=== PATIENT | female | born 1955 | race Caucasian/White ===

== ENCOUNTER 2019-08-11 14:00 | Emergency (ER) | payer MEDICAID ==
--- NOTE | 2019-08-11 14:55 | ER Document Report ---
ED Medical Screen (RME) - General Stated Complaint: LOWER BACK PAIN Time Seen by Provider: 08/11/19 14:50 Primary Care Provider: JEWELL HALL DO [Primary Care Provider] - Follow up as needed Mode of Arrival: Medic Information source: Patient Notes: 89-jekz-[age]-year-old female with history of kidney disease presents emergency department with complaints of left-sided flank pain since . Reports she just woke up with it. She also reports decreased urinary output. She denies fever vomiting diarrhea. She reports it hurts to walk. Denies lifting things heavy denies bowel incontinence reports she is always had problems with urinary incontinence. Left flank very tender to palpate I have greeted and performed a rapid initial assessment of this patient. A comprehensive ED assessment and evaluation of the patient, analysis of test results and completion of the medical decision making process will be conducted by additional ED providers. Physical Exam - Vital signs Vitals: Temp Pulse Resp BP Pulse Ox 98.1 F 83 18 130/69 H 93 08/11/19 14:23 08/11/19 14:23 08/11/19 14:23 08/11/19 14:23 08/11/19 14:23 Course - Vital Signs Vital signs: Temp Pulse Resp BP Pulse Ox 98.1 F 83 18 130/69 H 93 08/11/19 14:23 08/11/19 14:23 08/11/19 14:23 08/11/19 14:23 08/11/19 14:23 Doctor's Discharge - Discharge Referrals: JEWELL HALL DO [Primary Care Provider] - Follow up as needed
[2019-08-11 15:35] LABS: ABSOLUTE BASOPHILS # (AUTO) 0.1 10^3/uL (0.0-0.2); ABSOLUTE EOSINOPHILS # (AUTO) 0.2 10^3/uL (0.0-0.6); ABSOLUTE LYMPHOCYTES (AUTO) 2.3 10^3/uL (0.5-4.7); ABSOLUTE MONOCYTES (AUTO) 1.1 10^3/uL (0.1-1.4); ABSOLUTE NEUT (AUTO) 7.4 10^3/uL (1.7-8.2); EOSINOPHILS % (AUTO) 1.7 % (0-6); HEMATOCRIT 39.7 % (36.0-47.0); HEMOGLOBIN 13.2 g/dL (12.0-15.5); LYMPHOCYTES % (AUTO) 20.5 % (13-45); MEAN CORPUSCULAR HEMOGLOBIN 29.7 pg (27.0-33.4); MEAN CORPUSCULAR HGB CONC 33.3 g/dL (32.0-36.0); MEAN CORPUSCULAR VOLUME 89 fl (80-97); MONOCYTES % (AUTO) 9.9 % (3-13); PLATELET COUNT 238 10^3/uL (150-450); RED BLOOD COUNT 4.45 10^6/uL (3.72-5.28); RED CELL DISTRIBUTION WIDTH 14.6 % (11.5-14.0); SEGMENTED NEUTROPHILS % (AUTO) 66.9 % (42-78); TOTAL CELLS COUNTED % (AUTO) 100 %; WHITE BLOOD COUNT 11.1 10^3/uL (4.0-10.5)
[2019-08-11 15:37] LABS: APPEARANCE,URINE CLEAR; BILIRUBIN,URINE NEGATIVE (NEGATIVE); COLOR,URINE YELLOW; GLUCOSE, URINE >=500 mg/dL (NEGATIVE); KETONES,URINE NEGATIVE (NEGATIVE); LEUKOCYTE ESTERASE,URINE NEGATIVE (NEGATIVE); NITRITE,URINE NEGATIVE (NEGATIVE); PROTEIN,URINE NEGATIVE (NEGATIVE); URINE SPECIFIC GRAVITY 1.013; UROBILINOGEN,URINE NEGATIVE mg/dL (<2.0)
--- NOTE | 2019-08-11 15:54 | RADIOLOGY REPORT (SQ) ---
EXAM DESCRIPTION: CT ABD/PELVIS NO ORAL OR IV COMPLETED DATE/TIME: 08/11/2019 3:32 pm REASON FOR STUDY: flank pain COMPARISON: None. TECHNIQUE: CT scan of the abdomen and pelvis performed without intravenous or oral contrast. Images reviewed with lung, soft tissue, and bone windows. Reconstructed coronal and sagittal MPR images revi ewed. All images stored on PACS. All CT scanners at this facility use dose modulation, iterative reconstruction, and/or weight based d osing when appropriate to reduce radiation dose to as low as reasonably achievable (ALARA). - [facility]: Dose Right [facility]: CareDose [facility]: Dose Right [facility]: Teradose 4D [facility]: [employer] RADIATION DOSE: CT Rad equipment meets quality standard of care and radiation dose reduction techniq ues were employed. CTDIvol: 17.6 mGy. DLP: 957 mGy-cm.mGy. LIMITATIONS: None. FINDINGS: LOWER CHEST: Small areas of left basilar subpleural scarring -atelectasis. No pleural eff usion. NON-CONTRASTED LIVER, SPLEEN, ADRENALS: Evaluation limited by lack of IV contrast. No identified sign ificant masses. PANCREAS: No masses. No peripancreatic inflammatory changes. GALLBLADDER: Surgically absent. RIGHT KIDNEY AND URETER: No cysts identified. No solid masses. No calcified stones. No hydronephrosis or hydroureter. LEFT KIDNEY AND URETER: No cysts identified. No solid masses. No calcified stones. No hydronephrosis or hydroureter. AORTA AND RETROPERITONEUM: No aneurysm. No retroperitoneal masses or adenopathy. BOWEL AND PERITONEAL CAVITY: No obvious masses or inflammatory changes. No free fluid. APPENDIX: Normal. PELVIS, BLADDER, AND ABDOMINAL WALL: No free fluid. Unremarkable bladder. BONES: No acute findings. OTHER: No other significant finding. IMPRESSION: NO ACUTE FINDINGS. TECHNICAL DOCUMENTATION: JOB ID: [id number] Quality ID # [id number]: Final reports with documentation of one or more dose reduction techniques (e.g., Au tomated exposure control, adjustment of the mA and/or kV according to patient size, use of iterative reconstruction technique) 2010 [employer]- All Rights Reserved Reading location - IP/workstation name: [employer]
[2019-08-11 15:59] LABS: ALBUMIN 3.6 g/dL (3.5-5.0); ALKALINE PHOSPHATASE 123 U/L (38-126); ANION GAP 13 (5-19); ASPARTATE AMINO TRANSFERASE 25 U/L (14-36); BILIRUBIN,DIRECT 0.2 mg/dL (0.0-0.4); BILIRUBIN,TOTAL 0.4 mg/dL (0.2-1.3); BLOOD UREA NITROGEN 22 mg/dL (7-20); CALCIUM 9.3 mg/dL (8.4-10.2); CARBON DIOXIDE 25 mmol/L (22-30); CHLORIDE 96 mmol/L (98-107); POTASSIUM 4.8 mmol/L (3.6-5.0); TOTAL PROTEIN 6.8 g/dL (6.3-8.2)
[2019-08-11 16:11] LABS: GLUCOSE 414 mg/dL (75-110)
[2019-08-11] MEDS ORDERED: LIDOCAINE 5% (700 MG) TRANSDERMAL ADH..PATCH TP ONE (16:30)
[2019-08-11] MEDS ORDERED: KETOROLAC TROMETHAMINE 60 MG/2 ML SDV IM ONE (16:30)
[2019-08-11] MEDS ORDERED: CYCLOBENZAPRINE HCL 10 MG TABLET PO ONE (16:30)
--- NOTE | 2019-08-11 18:18 | ER Document Report ---
ED General - General Chief Complaint: Back Pain Stated Complaint: LOWER BACK PAIN Time Seen by Provider: 08/11/19 14:50 Primary Care Provider: JEWELL HALL DO [NO LOCAL MD] - Follow up as needed Mode of Arrival: Ambulatory Information source: Patient Notes: 31-hiwi-kic-year-old female with history of kidney disease presents emergency department with complaints of left-sided flank pain since . Reports she just woke up with it. She also reports decreased urinary output. She denies fever vomiting diarrhea. She reports it hurts to walk. Denies lifting things heavy denies bowel incontinence reports she is always had problems with urinary incontinence. Left flank very tender to palpate - Related Data Allergies/Adverse Reactions: haloperidol [From Haldol] Allergy (Verified 08/11/19 14:54) quetiapine [From Seroquel] Allergy (Verified 08/11/19 14:54) Past Medical History - General Information source: Patient - Social History Smoking Status: Current Every Day Smoker Chew tobacco use (# tins/day): No Frequency of alcohol use: None Drug Abuse: None Family History: Reviewed & Not Pertinent Patient has suicidal ideation: No Patient has homicidal ideation: No Endocrine Medical History: Reports: Hx Diabetes Mellitus Type 2 Surgical Hx: Negative - Immunizations Immunizations up to date: Yes Review of Systems - Review of Systems Constitutional: No symptoms reported EENT: No symptoms reported Cardiovascular: No symptoms reported Respiratory: No symptoms reported Gastrointestinal: Abdominal pain Genitourinary: No symptoms reported Female Genitourinary: No symptoms reported Musculoskeletal: See HPI Skin: No symptoms reported Hematologic/Lymphatic: No symptoms reported Neurological/Psychological: No symptoms reported Physical Exam - Vital signs Vitals: Temp Pulse Resp BP Pulse Ox 98.1 F 83 18 130/69 H 93 08/11/19 14:23 08/11/19 14:23 08/11/19 14:23 08/11/19 14:23 08/11/19 14:23 - Notes Notes: PHYSICAL EXAMINATION: GENERAL: Well-appearing, well-nourished and in no acute distress. HEAD: Atraumatic, normocephalic. EYES: Pupils equal round and reactive to light, extraocular movements intact, co njunctiva are normal. ENT: Nares patent, oropharynx clear without exudates. Moist mucous membranes. NECK: Normal range of motion, supple without lymphadenopathy LUNGS: Breath sounds clear to auscultation bilaterally and equal. No wheezes rales or rhonchi. HEART: Regular rate and rhythm without murmurs ABDOMEN: Soft, nontender, nondistended abdomen. No guarding, no rebound. No masses appreciated. Female : deferred Musculoskeletal: Tenderness to palpation to the left lumbar paraspinous area, tenderness over the left flank area and left anterior thigh area. No vertebral tenderness, step-off or deformity. NEUROLOGICAL: Cranial nerves grossly intact. Normal speech, normal gait. N ormal sensory, motor exams PSYCH: Normal mood, normal affect. SKIN: Warm, Dry, normal turgor, no rashes or lesions noted. Course - Re-evaluation Re-evalutation: 08/11/19 18:15 Patient reports her pain has improved after administration of medications here in the emergency department. We will discharge her home with prescription for Toradol and Flexeril. She will have close follow-up with her primary care provider. Copies of her labs and CT were given to her with discharge packet for review by her primary care physician. We also discussed ED return precautions, patient verbalized understanding and agreement with same. - Vital Signs Vital signs: Temp Pulse Resp BP Pulse Ox 97.8 F 68 16 145/75 H 96 08/11/19 18:38 08/11/19 18:38 08/11/19 18:38 08/11/19 18:38 08/11/19 18:38 - Laboratory Result Diagrams: 08/11/19 15:14 08/11/19 15:14 Laboratory results interpreted by me: 08/11/19 08/11/19 08/11/19 15:14 15:14 15:14 WBC 11.1 H RDW 14.6 H Sodium 133.7 L Chloride 96 L BUN 22 H Est GFR (MDRD) Non-Af 50 L Glucose 414 H* Urine Glucose (UA) >=500 H Discharge - Discharge Clinical Impression: Back pain Qualifiers: Back pain location: low back pain Chronicity: acute Back pain laterality: left Sciatica presence: with sciatica Sciatica laterality: sciatica of left side Qualified Code(s): M54.42 - Lumbago with sciatica, left side Condition: Stable Disposition: HOME, SELF-CARE Additional Instructions: You have been seen in the Emergency Department (ED) today for back pain. Your workup and exam have not shown any acute abnormalities and you are likely suffering from muscle strain or possible problems with your discs, but there is no treatment that will fix your symptoms at this time. Please take the medication that has been prescribed as directed. You should also purchase a local lidocaine cream such as "aspercreme with lidocaine" and use per bottle instructions to the affected area. Apply heat to the area as often as you are a ble. Continue to keep active and avoid prolonged periods of bed rest. Please follow up with your doctor as soon as possible regarding today's ED visit and your back pain. Return to the ED for worsening back pain, fever, weakness or numbness of either leg, or if you develop either (1) an inability to urinate or have bowel movements, or (2) loss of your ability to control your bathroom functions (if you start having "accidents"), or if you develop other new symptoms that concern you.call your primary care provider to schedule a follow- up for the next 3 to 5 days. Prescriptions: Ketorolac Tromethamine [Toradol 10 mg Tablet] 10 mg PO Q6HP PRN #20 tablet PRN Reason: Cyclobenzaprine HCl [Flexeril 10 mg Tablet] 10 mg PO TIDP PRN #20 tab PRN Reason: Referrals: JEWELL HALL DO [NO LOCAL MD] - Follow up as needed
[2019-08-11 18:39] VITALS: BP 145/75
== END 2019-08-11 18:40 | disposition home or self-care (01) ==
LOC: ER 14:00
DX: M54.42 Lumbago with sciatica, left side (principal); R10.9 Unspecified abdominal pain; F17.200 Nicotine dependence, unspecified, uncomplicated; E11.9 Type 2 diabetes mellitus without complications
CPT/HCPCS: 99284; 96372; 36415; 85025; 80053; 81001; 74176; J3490 ×2; J1885

== ENCOUNTER 2019-08-27 15:12 | Emergency (ER) | payer MEDICAID ==
--- NOTE | 2019-08-27 15:30 | ER Document Report ---
ED Medical Screen (RME) - General Chief Complaint: Bloody Stools Stated Complaint: BLOODY STOOLS,ABDOMINAL PAIN Time Seen by Provider: 08/27/19 15:28 Primary Care Provider: HENOK PEARSON PA-C [Primary Care Provider] - Follow up as needed - [facility] Notes: 08/27/19 15:30 Patient is a 63-year-old female with history of type 2 diabetes who presents complaining of having black stools for the past 3 days and was seen by her family doctor yesterday and was told that it was blood. She does have some mid to lower abdominal pains as well. She has been able to eat and drink without difficulty. She is urinating normally. No fever, chest pain, shortness of breath. She has not had GI issues or bleeding in the past. I have treated and performed a rapid initial assessment of this patient. A comprehensive ED assessment and evaluation of the patient, analysis of test results and completion of medical decision making process will be conducted by additional ED providers. PHYSICAL EXAMINATION: GENERAL: Well-appearing, well-nourished and in no acute distress. A&Ox4. Answers questions appropriately. Abdomen: Limited exam in triage, mild tenderness to the mid/lower abdomen. - Related Data Allergies/Adverse Reactions: haloperidol [From Haldol] Allergy (Verified 08/11/19 14:54) moxifloxacin [From Avelox] Allergy (Verified 08/27/19 15:28) quetiapine [From Seroquel] Allergy (Verified 08/11/19 14:54) Past Medical History Endocrine Medical History: Reports: Hx Diabetes Mellitus Type 2 - Immunizations Immunizations up to date: Yes Physical Exam - Vital signs Vitals: Temp Pulse Resp BP Pulse Ox 98.1 F 66 18 149/70 H 95 08/27/19 15:21 08/27/19 15:21 08/27/19 15:21 08/27/19 15:21 08/27/19 15:21 Course - Vital Signs Vital signs: Temp Pulse Resp BP Pulse Ox 98.1 F 66 18 149/70 H 95 08/27/19 15:21 08/27/19 15:21 08/27/19 15:21 08/27/19 15:21 08/27/19 15:21 Doctor's Discharge - Discharge Referrals: LILI,HENOK, PA-C [Primary Care Provider] - Follow up as needed
[2019-08-27 16:35] LABS: ABSOLUTE EOSINOPHILS # (AUTO) 0.1 10^3/uL (0.0-0.6); ABSOLUTE LYMPHOCYTES (AUTO) 2.4 10^3/uL (0.5-4.7); ABSOLUTE MONOCYTES (AUTO) 0.8 10^3/uL (0.1-1.4); ABSOLUTE NEUT (AUTO) 2.1 10^3/uL (1.7-8.2); BASOPHILS % (AUTO) 0.3 % (0-2); EOSINOPHILS % (AUTO) 1.4 % (0-6); HEMOGLOBIN 13.3 g/dL (12.0-15.5); LYMPHOCYTES % (AUTO) 44.7 % (13-45); MEAN CORPUSCULAR HEMOGLOBIN 29.5 pg (27.0-33.4); MEAN CORPUSCULAR HGB CONC 33.3 g/dL (32.0-36.0); MEAN CORPUSCULAR VOLUME 89 fl (80-97); MONOCYTES % (AUTO) 14.8 % (3-13); PLATELET COUNT 173 10^3/uL (150-450); RED BLOOD COUNT 4.51 10^6/uL (3.72-5.28); RED CELL DISTRIBUTION WIDTH 14.9 % (11.5-14.0); SEGMENTED NEUTROPHILS % (AUTO) 38.8 % (42-78); TOTAL CELLS COUNTED % (AUTO) 100 %; WHITE BLOOD COUNT 5.4 10^3/uL (4.0-10.5)
[2019-08-27 16:42] LABS: APPEARANCE,URINE CLEAR; BILIRUBIN,URINE NEGATIVE (NEGATIVE); COLOR,URINE STRAW; GLUCOSE, URINE NEGATIVE (NEGATIVE); KETONES,URINE NEGATIVE (NEGATIVE); PROTEIN,URINE NEGATIVE (NEGATIVE); URINE SPECIFIC GRAVITY 1.002; UROBILINOGEN,URINE NEGATIVE mg/dL (<2.0)
[2019-08-27 16:58] LABS: ALBUMIN 3.7 g/dL (3.5-5.0); ALKALINE PHOSPHATASE 110 U/L (38-126); ANION GAP 9 (5-19); ASPARTATE AMINO TRANSFERASE 68 U/L (14-36); BILIRUBIN,DIRECT 0.3 mg/dL (0.0-0.4); BILIRUBIN,TOTAL 0.4 mg/dL (0.2-1.3); BLOOD UREA NITROGEN 10 mg/dL (7-20); CALCIUM 9.1 mg/dL (8.4-10.2); CARBON DIOXIDE 29 mmol/L (22-30); CHLORIDE 102 mmol/L (98-107); GLUCOSE 91 mg/dL (75-110); POTASSIUM 4.2 mmol/L (3.6-5.0); TOTAL PROTEIN 7.1 g/dL (6.3-8.2)
[2019-08-27] MEDS ORDERED: NORMAL SALINE 1000 ML 1,000 ML IV ONE (18:46)
[2019-08-27] MEDS ORDERED: PANTOPRAZOLE SODIUM 40 MG VIAL IV ONE (18:47)
[2019-08-27] MEDS ORDERED: FAMOTIDINE INJ/PF 20 MG/2 ML SDV IV ONE (18:48)
[2019-08-27] MEDS ORDERED: ONDANSETRON HCL INJ/PF 4 MG/2 ML SDV IV ONE (18:49)
--- NOTE | 2019-08-27 18:58 | ER Document Report ---
ED General - General Chief Complaint: Bloody Stools Stated Complaint: BLOODY STOOLS,ABDOMINAL PAIN Time Seen by Provider: 08/27/19 15:28 Primary Care Provider: HENOK PEARSON PA-C [Primary Care Provider] - Follow up as needed Mode of Arrival: Ambulatory TRAVEL OUTSIDE OF THE [place] IN LAST 30 DAYS: No - HPI Onset: Other - 3 days prior Onset/Duration: Sudden Quality of pain: Dull, Other - pt reports 3 months of grumbley stomach Severity: Moderate Pain Level: 3 - Related Data Allergies/Adverse Reactions: haloperidol [From Haldol] Allergy (Verified 08/11/19 14:54) moxifloxacin [From Avelox] Allergy (Verified 08/27/19 15:28) quetiapine [From Seroquel] Allergy (Verified 08/11/19 14:54) Home Medications: aspirin, humolog, atorvastatin, bupropion, duloxetine, gabapentin, lisinopril, magnesium, methocarbamol, risperdone, trazedone, albuterol, chantix doxepin, augmentin, tesselon perles. Past Medical History - General Information source: Patient, Relative - Social History Smoking Status: Current Every Day Smoker Cigarette use (# per day): Yes Chew tobacco use (# tins/day): No Smoking Education Provided: Yes Frequency of alcohol use: None Drug Abuse: None Lives with: Family Family History: CVA. denies: Reviewed & Not Pertinent, COPD Patient has suicidal ideation: No Patient has homicidal ideation: No - Past Medical History Cardiac Medical History: Reports: None Pulmonary Medical History: Reports: None EENT Medical History: Reports: None Neurological Medical History: Reports: None Endocrine Medical History: Reports: Hx Diabetes Mellitus Type 2 Renal/ Medical History: Reports: None GI Medical History: Reports: Hx Gastritis - x 3 months not evaluated by PMD..did see Keily yesterday - Immunizations Immunizations up to date: Yes Review of Systems - Review of Systems Constitutional: Weakness - x 3 days stumbling at home Cardiovascular: Dizziness, Lightheaded. denies: No symptoms reported Respiratory: No symptoms reported Gastrointestinal: Abdomen distended, Abdominal pain, Nausea, Blood streaked bowels, Black stools Female Genitourinary: No symptoms reported Musculoskeletal: No symptoms reported Hematologic/Lymphatic: No symptoms reported Neurological/Psychological: No symptoms reported Physical Exam - Vital signs Vitals: Temp Pulse Resp BP Pulse Ox 98.1 F 66 18 149/70 H 95 08/27/19 15:21 08/27/19 15:21 08/27/19 15:21 08/27/19 15:21 08/27/19 15:21 Interpretation: Normal - General General appearance: Anxious In distress: None - HEENT Head: Normocephalic Eyes: Pale conjunctiva. No: Normal Extraocular movements intact: Yes Eyelashes: Normal Pupils: PERRL Ears: Normal Sinus: Normal Nasal: Normal Mouth/Lips: Other - dry tongue Mucous membranes: Dry - Abdominal Distension: Distended Bowel sounds: Hyperactive Organomegaly: No organomegaly Course - Re-evaluation Re-evalutation: 08/27/19 20:28 Spoke with he advises observation admission but after speaking with Dr. Jay Collado he declined admission. I again spoke with Dr Hill as he was see her in the office tomorrow for outpatient GI ; n.p.o. after midnight - Vital Signs Vital signs: Temp Pulse Resp BP Pulse Ox 98.1 F 66 18 149/70 H 95 08/27/19 15:21 08/27/19 15:21 08/27/19 15:21 08/27/19 15:21 08/27/19 15:21 - Laboratory Result Diagrams: 08/27/19 16:18 08/27/19 16:18 Laboratory results interpreted by me: 08/27/19 08/27/19 16:18 16:18 RDW 14.9 H Sharkey % (Auto) 14.8 H Seg Neutrophils % 38.8 L Est GFR (MDRD) Non-Af 59 L AST 68 H - Diagnostic Test Radiology reviewed: Reports reviewed Discharge - Discharge Clinical Impression: GI bleed due to NSAIDs Condition: Fair Disposition: HOME, SELF-CARE Additional Instructions: Follow-up with Dr. Hill gastroenterology in his office tomorrow and do not eat or drink anything past midnight; return to ER as needed take medicines as directed Prescriptions: Sucralfate [Carafate 1 gm Tablet] 1 gm PO TID #60 tablet Referrals: HENOK PEARSON PA-C [Primary Care Provider] - Follow up as needed
--- NOTE | 2019-08-27 19:45 | RADIOLOGY REPORT (SQ) ---
EXAM DESCRIPTION: CTA ABDOMEN/PELVIS W WO COMPLETED DATE/TIME: 08/27/2019 7:30 pm REASON FOR STUDY: gi bleed COMPARISON: 08/11/2019 TECHNIQUE: CT scan of the abdomen and pelvis performed with and without intravenous contrast. Images reviewed with lung, soft tissue, and bone windows. Reconstructed coronal and sagittal MPR images rev iewed. Delayed images for evaluation of possible gastrointestinal hemorrhage. All images stored on PA CS. All CT scanners at this facility use dose modulation, iterative reconstruction, and/or weight based d osing when appropriate to reduce radiation dose to as low as reasonably achievable (ALARA). [facility]: Dose Right [facility]: CareDose [facility]: Dose Right [facility]: Teradose 4D [facility]: [employer] CONTRAST TYPE AND DOSE: contrast/concentration: Isovue 350.00 mg/ml; Total Contrast Delivered: 99.0 ml; Total Saline Delivered: 62.0 ml RENAL FUNCTION: GFR > 60. RADIATION DOSE: CT Rad equipment meets quality standard of care and radiation dose reduction techniq ues were employed. CTDIvol: 19.4 - 45.4 mGy. DLP: 4170 mGy-cm.. LIMITATIONS: None. FINDINGS: NON-CONTRASTED IMAGING: No significant renal or bladder calcifications. No other significa nt organ calcifications. POST-CONTRASTED IMAGING: LOWER CHEST: No significant findings. No nodules or infiltrates. LIVER: Normal size. No masses. No dilated ducts. SPLEEN: Normal size. No focal lesions. PANCREAS: No masses. No significant calcifications. No adjacent inflammation or peripancreatic fluid collections. Pancreatic duct not dilated. GALLBLADDER: Surgically absent. ADRENAL GLANDS: No significant masses or asymmetry. RIGHT KIDNEY AND URETER: No solid masses. No significant calcifications. No hydronephrosis or hyd roureter. LEFT KIDNEY AND URETER: No solid masses. No significant calcifications. No hydronephrosis or hydr oureter. AORTA AND VESSELS: No aneurysm. No dissection. Renal arteries, SMA, celiac without stenosis. RETROPERITONEUM: No retroperitoneal adenopathy, hemorrhage or masses. BOWEL AND PERITONEAL CAVITY: No masses or inflammatory changes. No free fluid or peritoneal masses. N o active contrast extravasation into the bowel lumen or other findings of active gastrointestinal ble eding. APPENDIX: Normal. PELVIS: No mass. No free fluid. Normal bladder. ABDOMINAL WALL: No masses. No hernias. BONES: No significant or acute findings. OTHER: No other significant finding. IMPRESSION: NO CT EVIDENCE OF ACTIVE GASTROINTESTINAL HEMORRHAGE. TECHNICAL DOCUMENTATION: JOB ID: [id number] Quality ID # [id number]: Final reports with documentation of one or more dose reduction techniques (e.g., Au tomated exposure control, adjustment of the mA and/or kV according to patient size, use of iterative reconstruction technique) 2010 [employer]- All Rights Reserved Reading location - IP/workstation name: [email or web address]
[2019-08-27] MEDS ORDERED: SUCRALFATE 1 GM TABLET PO ONE (20:48)
[2019-08-27 20:54] VITALS: BP 124/81
== END 2019-08-27 21:20 | disposition home or self-care (01) ==
LOC: ER 15:12
DX: K92.2 Gastrointestinal hemorrhage, unspecified (principal); T39.395A Adverse effect of other nonsteroidal anti-inflammatory drugs [NSAID], initial encounter; K92.1 Melena; F17.210 Nicotine dependence, cigarettes, uncomplicated; E11.9 Type 2 diabetes mellitus without complications; R53.1 Weakness; R42 Dizziness and giddiness; R10.9 Unspecified abdominal pain; R11.0 Nausea; Z79.82 Long term (current) use of aspirin; Z79.4 Long term (current) use of insulin; Z79.899 Other long term (current) drug therapy; Z79.2 Long term (current) use of antibiotics
CPT/HCPCS: 99285; 96361; 96374; 96375; 86900; 86901; 36415; 86850; 83690; 85025; 80053; 81001; 74174; C9113; J3490; J2405; J7030; S0028